=== PATIENT | male | born 2000 | race African-American/Black ===

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

== ENCOUNTER 2019-07-13 22:06 | Emergency (ER) | payer SELFPAY | END 2019-07-13 22:33 | disposition home or self-care (01) | LOC: MADERS 22:06 | DX: A08.4 Viral intestinal infection, unspecified (principal) | CPT/HCPCS: 99283 ==

== ENCOUNTER 2020-03-22 14:34 | Emergency (ER) | payer SELFPAY ==
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
== END 2020-03-22 15:44 | disposition home or self-care (01) ==
LOC: MADERS 14:34
DX: S20.212A Contusion of left front wall of thorax, initial encounter (principal); V89.9XXA Person injured in unspecified vehicle accident, initial encounter

== ENCOUNTER 2020-12-05 15:26 | Emergency (ER) | payer SELFPAY ==
[2020-12-05] MEDS ORDERED: Mag-Al Plus 1200 MG/1200 MG/120 MG/30 ML UDCUP ONE (15:51)
[2020-12-05] MEDS ORDERED: Lidocaine Viscous Sol 2% 15 ml UD Cup ONE (15:51)
== END 2020-12-05 16:04 | disposition home or self-care (01) ==
LOC: MADERS 15:26
DX: R10.13 Epigastric pain (principal); R11.2 Nausea with vomiting, unspecified
CPT/HCPCS: 99283

== ENCOUNTER 2021-06-08 03:30 | Emergency (ER) | payer OTHER, SELFPAY ==
[2021-06-08] MEDS ORDERED: Boostrix 0.5 ML (Tdap) VIAL ONE (04:37)
[2021-06-08] MEDS ORDERED: Lidocaine 4% Cream 5 GM TUBE w/ Tegaderm ONE (04:37)
== END 2021-06-08 07:41 | disposition home or self-care (01) ==
LOC: MADERS 03:30
DX: S91.111A Laceration without foreign body of right great toe without damage to nail, initial encounter (principal); S80.211A Abrasion, right knee, initial encounter; V29.40XA Motorcycle driver injured in collision with unspecified motor vehicles in traffic accident, initial encounter
CPT/HCPCS: 70450; 71250; 90471; 90715